=== PATIENT | male | born 1985 | race African-American/Black ===

== ENCOUNTER 2019-10-18 20:04 | Emergency (ER) | payer OTHER ==
[~2019-10-18] VITALS: Ht 180.3 cm; Wt 79.4 kg
[~2019-10-18 20:04] MED LIST: PHENERGAN 25 MG25 M1 PO; ZOFRAN ODT4 MG PO
[2019-10-18 20:33] LABS: ABSOLUTE LYMPHOCYTES 0.7 thou/uL (0.8-5.3); ABSOLUTE MONOCYTES 0.4 thou/uL (0.0-1.2); ABSOLUTE NEUTROPHILS 8.2 thou/uL (1.6-8.1); BASOPHILS 0.3 %; EOSINOPHILS 0.4 %; HEMATOCRIT 48.9 % (42.0-52.0); HEMOGLOBIN 16.9 gm/dL (14.0-18.0); LYMPHOCYTES 7.3 %; MCH 33.1 pg (26.0-34.0); MCHC 34.7 g/dL (28.0-37.0); MCV 95.6 fL (80.0-100.0); MONOCYTES 4.7 %; MPV 10.7 fl. (7.2-11.1); NUCLEATED RBCS 0 /100WBC; PLATELET COUNT* 146 thou/uL (150-400); POLYS 87.3 %; RBC 5.11 mil/uL (4.50-6.00); RDW-CV 11.8 % (10.5-14.5); WBC 9.4 thou/uL (4.0-11.0)
[2019-10-18 20:41] LABS: CALCIUM 8.9 mg/dL (8.5-10.1); CREATININE 1.1 mg/dL (0.6-1.3); POTASSIUM 3.9 mmol/L (3.5-5.1)
[2019-10-18 20:46] LABS: ALBUMIN 4.4 g/dL (3.4-5.0); TOTAL BILIRUBIN 1.4 mg/dL (<0.1-1.0)
[2019-10-18 21:06] LABS: PLATELET ESTIMATE ADEQUATE
[2019-10-18] MEDS ORDERED: ZOFRAN ODT4 MG PO (21:23)
[2019-10-18 21:29] LABS: URINE BILIRUBIN 1+ (Negative); URINE BLOOD NEGATIVE (Negative); URINE CLARITY CLEAR; URINE COLOR YELLOW; URINE GLUCOSE-RANDOM NEGATIVE (Negative); URINE KETONES 2+ (Negative); URINE LEUKOCYTES-REFLEX NEGATIVE (Negative); URINE NITRITE-REFLEX NEGATIVE (Negative); URINE PROTEIN NEGATIVE (Negative); URINE SPECIFIC GRAVITY >= 1.030 (1.005-1.030); URINE UROBILINOGEN 0.2 E.U./dl (0.2-1.0)
[2019-10-18 21:32] LABS: ICTOTEST (BILI CONFIRMATORY) Negative (Negative)
[2019-10-18 22:25] VITALS: BP 132/71
== END 2019-10-18 22:25 | disposition home or self-care (01) ==
LOC: M.ERS 20:04
PROVIDERS: Emergency Medicine
DX: R19.7 Diarrhea, unspecified (principal); R11.2 Nausea with vomiting, unspecified; F17.210 Nicotine dependence, cigarettes, uncomplicated